=== PATIENT | female | born 1990 | race American Indian/Alaskan Native ===

== ENCOUNTER 2016-04-13 10:54 | Emergency (ER) | payer OTHER ==
[2016-04-13 11:51] VITALS: BP 130/85
--- NOTE | 2016-04-13 11:59 | Emergency Department Report ---
Chief Complaint: Headache Stated Complaint: MAJOR HEADACHE Time Seen by Provider: 04/13/16 11:54 - HPI History of Present Illness: 26-year-old female comes in for complaint of headache that started yesterday. Patient reports that she took 1 Tylenol without any relief. She has not taken any more pain medication. Complains of left side of her head as pain today. She feels like her face is drooping pain is worse with movement of her head. Patient denies any trauma reports been nauseous but no vomiting. Patient reports she has a past medical history of hypertension has not been taking any medication secondary to not getting a refill. LMP 04/10/2016 - Exam Vital Signs: Vital Signs 04/13/16 11:42 Temperature 98.0 F Pulse Rate 69 Respiratory 17 Rate Blood Pressure 130/85 O2 Sat by Pulse 99 Oximetry Physical Exam: Patient's alert and oriented 3, neuro: EOMI intact tongue protrusion intact [id number] bilateral intact there's no arm drift, strength in the shoulders intact gag reflex intact Romberg normal. MSE screening note: Focused history and physical exam performed. Due to findings the following was ordered: CBC CMP and serum hCG patient be evaluated in the main ER ED Disposition for MSE Condition: Stable
[2016-04-13 12:30] LABS: Hematocrit 45.1 % (30.3-42.9); Hemoglobin 15.1 gm/dl (10.1-14.3); Mean Corpuscular HGB Conc 34 % (30-34); Mean Corpuscular Hemoglobin 28 pg (28-32); Mean Corpuscular Volume 84 fl (79-97); Platelet Count 307 K/mm3 (140-440); Red Blood Count 5.38 M/mm3 (3.65-5.03); White Blood Count 5.6 K/mm3 (4.5-11.0)
[2016-04-13 12:45] LABS: BUN/Creatinine Ratio 21.42; Blood Urea Nitrogen 15 mg/dL (7-17); Carbon Dioxide 26 mmol/L (22-30); Chloride 104.2 mmol/L (98-107); Glucose 90 mg/dL (65-100); Potassium 4.3 mmol/L (3.6-5.0); Sodium 140 mmol/L (137-145)
[2016-04-13 12:46] LABS: Anion Gap 14 mmol/L
--- NOTE | 2016-04-14 13:49 | ED Elopement Review ---
ED Pt Elopement review - Results review Lab results: Laboratory Tests 04/13/16 04/13/16 04/13/16 12:19 12:19 12:19 WBC 5.6 RBC 5.38 H Hgb 15.1 H Hct 45.1 H MCV 84 MCH 28 MCHC 34 RDW 14.0 Plt Count 307 Sodium 140 Potassium 4.3 Chloride 104.2 Carbon Dioxide 26 Anion Gap 14 BUN 15 Creatinine 0.7 Estimated GFR > 60 BUN/Creatinine Ratio 21.42 Glucose 90 Calcium 9.0 HCG, Quant < 2 - Call Back decision Pt Call Back Decision: No action required
== END 2016-04-13 21:49 | disposition left against medical advice (07) ==
LOC: ED 10:54
DX: R51 Headache (principal); R29.810 Facial weakness; R11.0 Nausea; Z53.21 Procedure and treatment not carried out due to patient leaving prior to being seen by health care provider
CPT/HCPCS: 36415; 80048; 84702; 85027